=== PATIENT | male | born 2000 | race Two or more races ===

== ENCOUNTER 2023-02-06 10:41 | Inpatient (IN) | payer OTHER ==
[~2023-02-06] VITALS: Ht 172.7 cm; Wt 60.8 kg
[2023-02-06] MEDS ORDERED: ACETAMINOPHEN ES 500 MG TABLET PO PRN (15:00)
[2023-02-06] MEDS ORDERED: IBUPROFEN 200 MG TABLET PO PRN (15:00)
[2023-02-06] MEDS ORDERED: LORAZEPAM 1 MG TABLET FOR AGITATION PO PRN (15:00)
[2023-02-06] MEDS ORDERED: MAGNESIUM HYDROXIDE 30 ML UDC PO PRN (15:00)
[2023-02-06] MEDS ORDERED: ZOLPIDEM TARTRATE 10 MG TABLET PO PRN (15:00)
[2023-02-06] MEDS ORDERED: MAG HYDROX/AL HYDROX/SIMETH 30 ML UDC PO PRN (15:00)
[2023-02-06 20:00] VITALS: BP 131/72; TEMP 98.4; O2SAT 99
[2023-02-06] MEDS: SEROQUEL PO SCH (22:01)
[2023-02-07 08:00] VITALS: BP 113/62; TEMP 98.8; O2SAT 100
[2023-02-07 16:00] VITALS: BP 136/78; TEMP 98.9; O2SAT 100
[2023-02-07 20:00] VITALS: BP 131/80; TEMP 97.8; O2SAT 99
[2023-02-07] MEDS: SEROQUEL PO SCH (21:47)
[2023-02-08 07:00] VITALS: BP 119/72; TEMP 98.4; O2SAT 100
[2023-02-08 16:00] VITALS: BP 122/79; TEMP 98.9; O2SAT 100
[2023-02-08 20:00] VITALS: BP 129/81; TEMP 98.8; O2SAT 100
[2023-02-09 04:00] VITALS: BP 114/77; TEMP 98.2; O2SAT 98
[2023-02-09 08:00] VITALS: BP 113/71; TEMP 98.2; O2SAT 99
[2023-02-09 20:30] VITALS: BP 127/75; TEMP 97.5; O2SAT 94
[2023-02-10 08:00] VITALS: BP 122/57; TEMP 97.7; O2SAT 100
[2023-02-10 16:00] VITALS: BP 127/74; TEMP 98.5; O2SAT 98
[2023-02-10 20:00] VITALS: BP 108/63; TEMP 98.2; O2SAT 100
[2023-02-11 08:00] VITALS: BP 115/65; TEMP 97.9; O2SAT 99
[2023-02-11 15:00] VITALS: BP 136/87; TEMP 98.1; O2SAT 98
[2023-02-11 19:30] VITALS: BP 110/68; TEMP 99; O2SAT 100
[2023-02-12 09:00] VITALS: BP 144/68; TEMP 98; O2SAT 100
[2023-02-12 20:00] VITALS: BP_SYST 118; BP_DIAS 68; BP_DIAS 69; TEMP 98.8; O2SAT 98
[2023-02-13 08:29] VITALS: BP 124/72; TEMP 98.2; O2SAT 100
[2023-02-13] MEDS ORDERED: LORAZEPAM 1 MG TABLET FOR AGITATION/ANXIETY PO PRN (12:00)
[2023-02-13] MEDS ORDERED: ZOLPIDEM TARTRATE 10 MG TABLET PO PRN ×2 (12:00)
[2023-02-13] MEDS ORDERED: LORAZEPAM 1 MG TABLET FOR AGITATION PO PRN (12:00)
[2023-02-13] MEDS ORDERED: IBUPROFEN 200 MG TABLET PO PRN (14:00)
[2023-02-13] MEDS ORDERED: MAGNESIUM HYDROXIDE 30 ML UDC PO PRN (14:00)
[2023-02-13] MEDS ORDERED: MAG HYDROX/AL HYDROX/SIMETH 30 ML UDC PO PRN (14:00)
[2023-02-13] MEDS ORDERED: ACETAMINOPHEN ES 500 MG TABLET PO PRN (14:00)
[2023-02-13 16:29] VITALS: BP 133/79; TEMP 98.6; O2SAT 100
[2023-02-13] MEDS ORDERED: INVEST MED MK-8189-008-02 MISC 1 DOSE PO SCH (20:00)
[2023-02-14] MEDS ORDERED: QUET200T PO (08:09)
[2023-02-18] MEDS ORDERED: ZOLPIDEM TARTRATE 10 MG TABLET PO PRN (12:00)
[2023-02-20] MEDS ORDERED: [UNRECOGNIZED DRUG - REMARK] PO SCH (08:00)
[2023-02-20] MEDS ORDERED: ZOLPIDEM TARTRATE 10 MG TABLET PO PRN (12:00)
[2023-02-20] MEDS ORDERED: LORAZEPAM 1 MG TABLET FOR AGITATION PO PRN (14:00)
[2023-02-27] MEDS ORDERED: ZOLPIDEM TARTRATE 10 MG TABLET PO PRN (12:00)
[2023-02-27] MEDS ORDERED: LORAZEPAM 1 MG TABLET FOR AGITATION PO PRN (14:00)
[2023-03-06] MEDS ORDERED: ZOLPIDEM TARTRATE 10 MG TABLET PO PRN (12:00)
[2023-03-06] MEDS ORDERED: LORAZEPAM 1 MG TABLET FOR AGITATION PO PRN (14:00)
[2023-03-13] MEDS ORDERED: ZOLPIDEM TARTRATE 10 MG TABLET PO PRN (12:00)
[2023-03-13] MEDS ORDERED: LORAZEPAM 1 MG TABLET FOR AGITATION/ANXIETY PO PRN (14:00)
[2023-03-20] MEDS ORDERED: ZOLPIDEM TARTRATE 10 MG TABLET PO PRN (12:00)
[2023-03-20] MEDS ORDERED: LORAZEPAM 1 MG TABLET FOR AGITATION/ANXIETY PO PRN (12:00)
[2023-03-26] MEDS ORDERED: LORAZEPAM 1 MG TABLET FOR AGITATION/ANXIETY PO PRN (12:00)
[2023-03-27] MEDS ORDERED: LORAZEPAM 1 MG TABLET FOR AGITATION/ANXIETY PO PRN (12:00)
[2023-03-27] MEDS ORDERED: ZOLPIDEM TARTRATE 10 MG TABLET PO PRN (12:00)
== END 2023-02-13 20:14 | disposition home or self-care (01) | DRG 951 ==
LOC: MED 14:36
PROVIDERS: ADMIT Psychiatry & Neurology Psychiatry; ATTEND Psychiatry & Neurology Psychiatry
DX: Z00.6 Encounter for examination for normal comparison and control in clinical research program (principal); F20.0 Paranoid schizophrenia; Z79.899 Other long term (current) drug therapy; Z81.8 Family history of other mental and behavioral disorders
CPT/HCPCS: G0378

== ENCOUNTER 2023-02-13 10:58 | Inpatient (IN) | payer OTHER ==
[~2023-02-13] VITALS: Ht 172.7 cm; Wt 63.0 kg
[2023-02-13 22:20] VITALS: BP 123/76; TEMP 98.3; O2SAT 97
[2023-02-14 08:00] VITALS: BP 129/77; TEMP 98.2; O2SAT 100
[2023-02-14] MEDS ORDERED: QUET200T PO (08:09)
[2023-02-14 16:00] VITALS: BP 113/68; TEMP 98.2; O2SAT 97
[2023-02-14 20:00] VITALS: BP 127/80; TEMP 97.6; O2SAT 97
[2023-02-15 07:00] VITALS: BP 123/79; TEMP 98.1; O2SAT 99
[2023-02-15 16:00] VITALS: BP 123/66; TEMP 97.6; O2SAT 97
[2023-02-16 07:00] VITALS: BP 134/65; TEMP 98.5; O2SAT 99
[2023-02-16 16:00] VITALS: BP 126/65; TEMP 98.3; O2SAT 97
[2023-02-16 20:00] VITALS: BP 125/59; TEMP 98; O2SAT 97
[2023-02-17 08:00] VITALS: BP 131/82; TEMP 98.2; O2SAT 99
[2023-02-17 16:53] VITALS: BP 113/68; TEMP 98.4; O2SAT 99
[2023-02-17 20:00] VITALS: BP 118/74; TEMP 98.7; O2SAT 97
[2023-02-18 07:00] VITALS: BP 117/61; TEMP 98.3; O2SAT 100
[2023-02-18] MEDS ORDERED: MAG HYDROX/AL HYDROX/SIMETH 30 ML UDC PO PRN (10:00)
[2023-02-18] MEDS ORDERED: ACETAMINOPHEN ES 500 MG TABLET PO PRN (10:00)
[2023-02-18] MEDS ORDERED: IBUPROFEN 200 MG TABLET PO PRN (10:00)
[2023-02-18] MEDS ORDERED: ZOLPIDEM TARTRATE 10 MG TABLET PO PRN ×2 (10:00→12:00)
[2023-02-18] MEDS ORDERED: MAGNESIUM HYDROXIDE 30 ML UDC PO PRN (10:00)
[2023-02-18] MEDS ORDERED: LORAZEPAM 1 MG TABLET PO PRN (10:00)
[2023-02-18] MEDS ORDERED: LORAZEPAM 1 MG TABLET FOR AGITATION/ANXIETY PO PRN (12:00)
[2023-02-18 16:00] VITALS: BP 120/75; TEMP 98; O2SAT 99
[2023-02-18 23:00] VITALS: BP 124/65; TEMP 97.9; O2SAT 97
[2023-02-19 08:27] VITALS: BP 125/76; TEMP 97.9; O2SAT 100
[2023-02-19 16:16] VITALS: BP 114/68; TEMP 98; O2SAT 100
[2023-02-19 22:00] VITALS: BP 116/66; TEMP 97.9; O2SAT 98
[2023-02-20] MEDS ORDERED: ACETAMINOPHEN ES 500 MG TABLET PO PRN (19:00)
[2023-02-20] MEDS ORDERED: IBUPROFEN 200 MG TABLET PO PRN (19:00)
[2023-02-20] MEDS ORDERED: MAG HYDROX/AL HYDROX/SIMETH 30 ML UDC PO PRN (19:00)
[2023-02-20] MEDS ORDERED: MAGNESIUM HYDROXIDE 30 ML UDC PO PRN (19:00)
[2023-02-20 20:00] VITALS: BP 135/70; TEMP 98.5; O2SAT 100
[2023-02-20] MEDS: [UNRECOGNIZED DRUG - REMARK] PO SCH (20:12)
[2023-02-21 08:00] VITALS: BP 133/56; TEMP 98.4; O2SAT 99
[2023-02-21] MEDS: [UNRECOGNIZED DRUG - REMARK] PO SCH (08:04)
[2023-02-21 16:00] VITALS: BP 134/67; TEMP 98.2; O2SAT 100
[2023-02-21 20:00] VITALS: BP 129/65; TEMP 98.5; O2SAT 95
[2023-02-22 07:00] VITALS: BP 130/88; TEMP 97.9; O2SAT 100
[2023-02-22] MEDS: [UNRECOGNIZED DRUG - REMARK] PO SCH (08:03)
[2023-02-22 16:00] VITALS: BP 131/75; TEMP 98.6; O2SAT 100
[2023-02-22 20:00] VITALS: BP 134/70; TEMP 98.2; O2SAT 98
[2023-02-23] MEDS: [UNRECOGNIZED DRUG - REMARK] PO SCH (08:19)
[2023-02-23 16:00] VITALS: BP 118/77; TEMP 98.4; O2SAT 97
[2023-02-23 20:00] VITALS: BP 158/86; TEMP 98.1; O2SAT 94
[2023-02-24 07:00] VITALS: BP 124/89; TEMP 97.4; O2SAT 100
[2023-02-24] MEDS: [UNRECOGNIZED DRUG - REMARK] PO SCH (08:05)
[2023-02-24 21:30] VITALS: BP 133/69; TEMP 98.1; O2SAT 99
[2023-02-25 08:00] VITALS: BP 113/62; TEMP 98.2; O2SAT 99
[2023-02-25] MEDS: [UNRECOGNIZED DRUG - REMARK] PO SCH (11:24)
[2023-02-25] MEDS ORDERED: ZOLPIDEM TARTRATE 10 MG TABLET PO PRN (12:00)
[2023-02-25] MEDS ORDERED: LORAZEPAM 1 MG TABLET FOR AGITATION/ANXIETY PO PRN (12:00)
[2023-02-25 16:00] VITALS: BP 111/69; TEMP 98.2; O2SAT 100
[2023-02-25 20:00] VITALS: BP 128/74; TEMP 97.8; O2SAT 99
[2023-02-26] MEDS: [UNRECOGNIZED DRUG - REMARK] PO SCH (08:05)
[2023-02-26 08:23] VITALS: BP 116/74; TEMP 98.1; O2SAT 100
[2023-02-26 16:19] VITALS: BP 130/69; TEMP 98; O2SAT 100
[2023-02-26 21:04] VITALS: BP 127/74; TEMP 98.3; O2SAT 100
[2023-02-27 08:00] VITALS: BP 106/64; TEMP 98.5; O2SAT 100
[2023-02-27] MEDS: [UNRECOGNIZED DRUG - REMARK] PO SCH (08:05)
[2023-02-27 16:00] VITALS: BP 143/73; TEMP 99; O2SAT 96
[2023-02-27 20:00] VITALS: BP 139/102; TEMP 99.1; O2SAT 100
[2023-02-28] MEDS: [UNRECOGNIZED DRUG - REMARK] PO SCH (07:56)
[2023-02-28 08:00] VITALS: BP 122/75; TEMP 97.6; O2SAT 99
[2023-02-28 16:13] VITALS: BP 113/79; TEMP 98.6; O2SAT 99
[2023-02-28 20:00] VITALS: BP 149/86; TEMP 97.8; O2SAT 96
[2023-03-01 07:00] VITALS: BP 123/77; TEMP 97.6; O2SAT 100
[2023-03-01] MEDS: [UNRECOGNIZED DRUG - REMARK] PO SCH (07:59)
[2023-03-01 20:00] VITALS: BP 153/89; TEMP 97.4; O2SAT 98
[2023-03-02 07:00] VITALS: BP 133/62; TEMP 98; O2SAT 97
[2023-03-02] MEDS: [UNRECOGNIZED DRUG - REMARK] PO SCH (08:00)
[2023-03-03 08:00] VITALS: BP 121/72; TEMP 98.7; O2SAT 99
[2023-03-03] MEDS: [UNRECOGNIZED DRUG - REMARK] PO SCH (08:00)
[2023-03-03 20:00] VITALS: BP 128/79; TEMP 98.6
[2023-03-03 21:30] VITALS: BP 128/79; TEMP 98.6; O2SAT 96
[2023-03-04 07:05] VITALS: BP 94/56; TEMP 98.1; O2SAT 100
[2023-03-04] MEDS: [UNRECOGNIZED DRUG - REMARK] PO SCH (08:17)
[2023-03-04] MEDS ORDERED: LORAZEPAM 1 MG TABLET FOR AGITATION/ANXIETY PO PRN (12:00)
[2023-03-04] MEDS ORDERED: ZOLPIDEM TARTRATE 10 MG TABLET PO PRN (12:00)
[2023-03-04 16:00] VITALS: BP 114/58; TEMP 98.2; O2SAT 100
[2023-03-05 07:30] VITALS: BP 114/94; TEMP 97.9; O2SAT 99
[2023-03-05] MEDS: [UNRECOGNIZED DRUG - REMARK] PO SCH (08:26)
[2023-03-05 16:00] VITALS: BP 117/66; TEMP 98.1; O2SAT 99
[2023-03-05 21:45] VITALS: BP 108/61; TEMP 98.1; O2SAT 98
[2023-03-06 08:00] VITALS: BP 110/81; TEMP 97.9; O2SAT 100
[2023-03-06] MEDS: [UNRECOGNIZED DRUG - REMARK] PO SCH (08:10)
[2023-03-06 16:00] VITALS: BP 118/50; TEMP 97.9; O2SAT 99
[2023-03-06 20:00] VITALS: BP 108/61; TEMP 98.1; O2SAT 98
[2023-03-07] MEDS: [UNRECOGNIZED DRUG - REMARK] PO SCH (07:49)
[2023-03-07 08:00] VITALS: BP 118/105; TEMP 97.4; O2SAT 100
[2023-03-08 08:00] VITALS: BP 103/70; TEMP 96.7; O2SAT 99
[2023-03-08] MEDS: [UNRECOGNIZED DRUG - REMARK] PO SCH (09:30)
[2023-03-08 16:54] VITALS: BP 116/65; TEMP 98.6; O2SAT 100
[2023-03-08 19:30] VITALS: BP 125/72; TEMP 98.1; O2SAT 98
[2023-03-09 08:00] VITALS: BP 100/64; TEMP 97.9; O2SAT 98
[2023-03-09] MEDS: [UNRECOGNIZED DRUG - REMARK] PO SCH (08:02)
[2023-03-09 20:00] VITALS: BP 130/69; TEMP 98.8; O2SAT 99
[2023-03-10] MEDS: [UNRECOGNIZED DRUG - REMARK] PO SCH (07:54)
[2023-03-10 08:00] VITALS: BP 111/55; TEMP 98.1; O2SAT 96
[2023-03-10 16:00] VITALS: BP 109/84; TEMP 97.9; O2SAT 98
[2023-03-10 20:00] VITALS: BP 110/80; TEMP 98.2; O2SAT 99
[2023-03-11 07:30] VITALS: BP 135/62; TEMP 98.2; O2SAT 100
[2023-03-11] MEDS: [UNRECOGNIZED DRUG - REMARK] PO SCH (08:00)
[2023-03-11] MEDS ORDERED: LORAZEPAM 1 MG TABLET FOR AGITATION/ANXIETY PO PRN (12:00)
[2023-03-11] MEDS ORDERED: ZOLPIDEM TARTRATE 10 MG TABLET PO PRN (12:00)
[2023-03-12 07:30] VITALS: BP 115/66; TEMP 98.8; O2SAT 100
[2023-03-12] MEDS: [UNRECOGNIZED DRUG - REMARK] PO SCH (08:13)
[2023-03-12 16:00] VITALS: BP 118/59; TEMP 98.2; O2SAT 99
[2023-03-13] MEDS: [UNRECOGNIZED DRUG - REMARK] PO SCH (07:47)
[2023-03-13 08:00] VITALS: BP 100/56; TEMP 100; O2SAT 98
[2023-03-13 16:00] VITALS: BP 123/69; TEMP 98.8; O2SAT 98
[2023-03-13 20:00] VITALS: BP 109/71; TEMP 97.8; O2SAT 99
[2023-03-14] MEDS: [UNRECOGNIZED DRUG - REMARK] PO SCH (07:48)
[2023-03-14 20:00] VITALS: BP 149/90; TEMP 97.9; O2SAT 95
[2023-03-15] MEDS: [UNRECOGNIZED DRUG - REMARK] PO SCH (07:38)
[2023-03-15 08:00] VITALS: BP 118/60; TEMP 97.7; O2SAT 100
[2023-03-15 16:00] VITALS: BP 138/66; TEMP 99; O2SAT 100
[2023-03-16] MEDS: [UNRECOGNIZED DRUG - REMARK] PO SCH (08:02)
[2023-03-16 09:38] VITALS: BP 126/67; TEMP 97.7; O2SAT 100
[2023-03-16 16:00] VITALS: BP 111/66; TEMP 98.4; O2SAT 100
[2023-03-16 20:00] VITALS: BP 120/67; TEMP 97.9; O2SAT 100
[2023-03-17 08:00] VITALS: BP 114/71; TEMP 96.6; O2SAT 100
[2023-03-17] MEDS: [UNRECOGNIZED DRUG - REMARK] PO SCH (08:30)
[2023-03-17 10:00] VITALS: BP 114/71; TEMP 96.6; O2SAT 100
[2023-03-17 20:00] VITALS: BP 119/65; TEMP 99.1; O2SAT 99
[2023-03-18 07:00] VITALS: BP 109/81; TEMP 97.7; O2SAT 98
[2023-03-18] MEDS: [UNRECOGNIZED DRUG - REMARK] PO SCH (09:08)
[2023-03-18] MEDS ORDERED: LORAZEPAM 1 MG TABLET FOR AGITATION/ANXIETY PO PRN (12:00)
[2023-03-18] MEDS ORDERED: ZOLPIDEM TARTRATE 10 MG TABLET PO PRN (12:00)
== END 2023-03-18 15:31 | disposition home or self-care (01) | DRG 951 ==
LOC: MED 20:29
PROVIDERS: ADMIT Psychiatry & Neurology Psychiatry; ATTEND Psychiatry & Neurology Psychiatry
DX: Z00.6 Encounter for examination for normal comparison and control in clinical research program (principal); F20.0 Paranoid schizophrenia; Z79.899 Other long term (current) drug therapy; Z81.8 Family history of other mental and behavioral disorders; F12.90 Cannabis use, unspecified, uncomplicated
CPT/HCPCS: G0378